=== PATIENT | male | born 1950 | race Caucasian/White ===

== ENCOUNTER 2018-12-10 02:29 | Emergency (ER) | payer SELFPAY ==
[2018-12-10 02:39] VITALS: PULSE 66; RESP 20; TEMP 97.4
[2018-12-10 02:53] VITALS: BP 155/85; O2SAT 100
[2018-12-10] MEDS ORDERED: MORPHINE SULFATE 10 MG/ML SOL IV ONE ×2 (03:09)
[2018-12-10] MEDS ORDERED: ONDANSETRON HCL 4 MG/2 ML SOL IV ONE (03:14)
[2018-12-10 03:33] LABS: BASOPHILS % (AUTO) 0 % (0-3); EOSINOPHILS % (AUTO) 0 % (0-9); HEMATOCRIT 42 % (39-53); HEMOGLOBIN 14.2 gm/dl (13.5-17.7); LYMPHOCYTES % (AUTO) 7.9 % (10-50); MEAN CORPUSCULAR HEMOGLOBIN 31.3 pg (27.0-32.0); MEAN CORPUSCULAR HGB CONC 33.5 gm/dl (32.0-36.0); MEAN CORPUSCULAR VOLUME 93 fL (80-100); MONOCYTES % (AUTO) 3.6 % (0-12); NEUTROPHILS % (AUTO) 87.6 % (37-80)
[2018-12-10 03:45] LABS: CALCIUM 8.8 mg/dl (8.5-10.1); CARBON DIOXIDE 28.6 mEq/L (21-32); CREATININE 0.91 mg/dl (0.80-1.30); CRP INFLAMMATORY 0.3 mg/dl (0.00-0.33)
== END 2018-12-10 05:10 | disposition home or self-care (01) | DRG 392 ==
LOC: ED 02:29
DX: K52.9 Noninfective gastroenteritis and colitis, unspecified (principal); R10.9 Unspecified abdominal pain
CPT/HCPCS: 74177; 80048; 85025; 86140; 99283; Q9967